=== PATIENT | male | born 1975 | race Caucasian/White ===

== ENCOUNTER 2023-01-07 07:17 | Emergency (ER) | payer BC ==
[~2023-01-07] VITALS: Ht 182.9 cm; Wt 98.0 kg
[2023-01-07 07:18] VITALS: O2SAT 99
[2023-01-07 10:00] VITALS: BP 116/83; PULSE 84; RESP 18; TEMP 98
[2023-01-07] MEDS ORDERED: ACETAMINOPHEN 325MG TABLET PO ONE (10:00)
[2023-01-07] MEDS ORDERED: KETOROLAC 60MG/2ML VIAL IM ONE (10:00)
[2023-01-07] MEDS ORDERED: LIDOCAINE 5% PATCH TOP SCH (10:00)
[2023-01-07 10:50] LABS: CLARITY URINE CLEAR (CLEAR); COLOR URINE YELLOW (YELLOW); KETONES URINE NEGATIVE (NEGATIVE); LEUKOCYTE ESTERASE URINE 2+ (NEGATIVE); NITRITE URINE NEGATIVE (NEGATIVE); OCCULT BLOOD URINE 2+ (NEGATIVE); PH URINE 5.5 (4.5-8.0); PROTEIN URINE NEGATIVE (NEGATIVE); SPECIFIC GRAVITY URINE 1.022 (1.005-1.030); UROBILINOGEN URINE 0.2 E.U./dL (0.2-1.0)
[2023-01-07 11:19] LABS: BASOPHILS % 0.5 % (0.0-2.0); HEMATOCRIT. 46.8 % (42.0-52.0); HEMOGLOBIN. 15.6 g/dL (14.0-18.0); LYMPHOCYTES % 21.6 % (20.0-50.0); MEAN CORPUSCULAR HEMOGLOBIN 30.5 pg (28.0-32.0); MEAN CORPUSCULAR VOLUME 91.5 fL (80.0-94.0); NEUTROPHILS % 66.9 % (40.0-76.0); PLATELET 244 x1000/uL (130-400); RED BLOOD CELL COUNT 5.11 mill/uL (4.7-6.1); RED CELL DISTRIBUTION WIDTH 14.4 % (11.6-14.6)
[2023-01-07 11:23] LABS: CHLORIDE 108 mEq/L (98-107)
[2023-01-07] MEDS ORDERED: NAPR-1129 MT (12:01)
== END 2023-01-07 12:30 | disposition home or self-care (01) ==
LOC: ER 07:17
DX: M54.50 Low back pain, unspecified (principal); R31.9 Hematuria, unspecified
CPT/HCPCS: 80053; 81003; 85025; 36415; 74176; 96372; 99285; J1885; Z7610